=== PATIENT | male | born 1960 | race African-American/Black ===

== ENCOUNTER 2023-05-30 15:29 | Inpatient (IN) | payer BC ==
[~2023-05-30] VITALS: Ht 162.6 cm; Wt 53.3 kg
[2023-05-30] VITALS (10 sets, daily range): BP systolic 132–169; BP diastolic 84–99; PULSE 76–125; TEMP 97.6–98.6
[2023-05-30 15:49] LABS: COLLECTION METHOD CLEAN CATCH
[2023-05-30 15:59] LABS: BASO # 0.1 K/mm3 (0.0-0.2); BASO % 0.7 % (0.0-2.0); EOS # 0.2 K/mm3 (0.0-0.7); EOS % 3.4 % (0.0-4.0); GRAN # 3.5 K/mm3 (1.4-6.5); LYMPH # 2.1 K/mm3 (1.2-3.4); LYMPH % 31.3 % (20.0-51.0); MEAN CELL VOLUME 104 fl (80.0-100.0); MEAN CORPUSCULAR HGB CONC 30 g/dl (33.0-37.0); MEAN PLATELET VOLUME 8.2 fl (7.4-10.4); MONO # 0.9 K/mm3 (0.1-0.6); MONO % 13.2 % (1.7-9.3); PLATELET COUNT 344 K/mm3 (130-400); RED BLOOD COUNT 2.01 M/mm3 (4.20-5.60)
[2023-05-30 16:04] LABS: HEMATOCRIT 20.8 % (42.0-52.0); HEMOGLOBIN 6.3 g/dl (13.5-18.0); MEAN CORPUSCULAR HEMOGLOBIN 31 pg (27-31)
[2023-05-30 16:10] LABS: URINE APPEARANCE Cloudy (CLEAR/HAZY); URINE BLOOD 2+ (NEGATIVE); URINE COLOR Yellow (YELLOW); URINE GLUCOSE Negative (NEGATIVE); URINE KETONE Negative (NEGATIVE); URINE NITRATE Positive (NEGATIVE); URINE UROBILINOGEN 0.2 E.U/dL (0.2-1.0)
[2023-05-30 16:11] LABS: URINE PROTEIN(semi-quant) 2+ (NEGATIVE)
[2023-05-30 16:16] LABS: ALBUMIN 2.8 gm/dL (3.4-4.8); BILIRUBIN,TOTAL 0.3 mg/dL (0.2-1.2); C-REACTIVE PROTEIN 1.91 mg/dL (0.00-0.50); CALCIUM 9.1 mg/dL (8.4-10.2); CREATININE, serum 2.84 mg/dL (0.72-1.25); POTASSIUM 4.7 mmol/L (3.5-4.5); TOTAL PROTEIN 8.3 gm/dL (6.2-8.1)
[2023-05-30 18:43] LABS: RETIC # 0.08 M/mm3 (0.02-0.16); RETIC % 4.1 % (0.5-3.52)
--- NOTE | 2023-05-30 20:05 | NUR ---
Patient admitted to the floor during shift change, bedside report given by Aramis CRISTOBAL, patient reports he doesn't take any meds at home.
--- NOTE | 2023-05-30 21:01 | NUR ---
Patient assessed at this time, admission intake done as well, hospital policies orientated, with spencer to DD draining red-tinged urine, denies further needs, will continue to monitor.
--- NOTE | 2023-05-30 23:39 | NUR ---
Patient first unit of blood given and no transfusion reaction noted, 2nd unit just started, will continue to monitor.
[2023-05-31] VITALS (25 sets, daily range): BP systolic 116–145; BP diastolic 68–94; PULSE 78–95; TEMP 96.2–98.9
--- NOTE | 2023-05-31 03:53 | NUR ---
Patient complained of pain, PS of 6/10, IV morphine given, NPO maintained.
[2023-05-31 03:55] LABS: BASO # 0.1 K/mm3 (0.0-0.2); BASO % 0.7 % (0.0-2.0); EOS # 0.2 K/mm3 (0.0-0.7); EOS % 2.4 % (0.0-4.0); GRAN # 4.4 K/mm3 (1.4-6.5); GRAN % 58.9 % (42.2-75.2); LYMPH % 26.9 % (20.0-51.0); MEAN CORPUSCULAR HGB CONC 32 g/dl (33.0-37.0); MEAN PLATELET VOLUME 8.2 fl (7.4-10.4); MONO # 0.8 K/mm3 (0.1-0.6); MONO % 10.7 % (1.7-9.3); PLATELET COUNT 307 K/mm3 (130-400); REDCELL DISTRIBUTION WIDTH-CV 16.3 % (11.5-14.5)
[2023-05-31 04:02] LABS: HEMATOCRIT 23.9 % (42.0-52.0); HEMOGLOBIN 7.6 g/dl (13.5-18.0); MEAN CELL VOLUME 96 fl (80.0-100.0); MEAN CORPUSCULAR HEMOGLOBIN 30 pg (27-31)
[2023-05-31 04:17] LABS: INR 1.1 (0.8-3.0); PROTHROMBIN TIME 12.1 SECONDS (9.7-12.8)
[2023-05-31 04:20] LABS: CALCIUM 9.3 mg/dL (8.4-10.2); CREATININE, serum 2.51 mg/dL (0.72-1.25); MAGNESIUM 1.6 mg/dL (1.6-2.6); POTASSIUM 5.2 mmol/L (3.5-4.5)
--- NOTE | 2023-05-31 05:41 | NUR ---
Patient complained of pain, PS of 5/10, oxycodone given with sips of water, SCD's on, will continue to monitor.
--- NOTE | 2023-05-31 07:37 | NUR ---
PATIENT ALERT AND ORIENTED X3. PATIENT DENIES PAIN AT THIS TIME BUT SOME TENDERNESS TO HIS FEET. PATIENT WEARING SCD'S AND ON RA.PATIENT LAYING DOWN RESTING AND WAITING ON HIS SURGERY PROGRAMMED FOR TODAY. PATIENT CURRENTLY NPO AND LR RUNNING AT 60ML/HR. PATIENT DENIES FONTAINE, SOB AND DENIES ANY OTHER CONCERN AT THIS TIME. CALL LIGHT IN REACH. BED AT LOWEST POSITION.
--- NOTE | 2023-05-31 13:57 | NUR ---
Street Sweeper Operator met with patient after he came up from his procedure and he stated he is a little groggy. SW asked intake questions but will follow up on discharge planning. Patient just moved to [place] a week ago to live with his brother, Jeff (ph#[phone]). Patient advised Jeff is helping him get set up with a PCP. Patient is unsure if he has DPOA-HC completed. Discharge Plan: [facility]
[2023-06-01] VITALS (12 sets, daily range): BP systolic 126–148; BP diastolic 91–99; PULSE 80–87; TEMP 97.5–98.2
--- NOTE | 2023-06-01 06:07 | NUR ---
pt asking for breakfast, wanting to eat regular food, bowel sounds hypoactive, not passing any gas yet, gave pt some vanilla pudding to try. dsg to abd cdi, IVF infusing per piv @ 60cc/hr, spencer patent/secure, draining orange urine(pt on AZO) with small amt of blood present. on RA since last evening. pain controlled with scheduled tylenol and x1 oxycodone and morphine IV x1.
[2023-06-01 06:35] LABS: BASO % 0.2 % (0.0-2.0); GRAN # 8.3 K/mm3 (1.4-6.5); LYMPH # 1.4 K/mm3 (1.2-3.4); LYMPH % 13.1 % (20.0-51.0); MEAN CELL VOLUME 96 fl (80.0-100.0); MEAN CORPUSCULAR HGB CONC 32 g/dl (33.0-37.0); MEAN PLATELET VOLUME 8.7 fl (7.4-10.4); MONO % 9.4 % (1.7-9.3); PLATELET COUNT 332 K/mm3 (130-400); RED BLOOD COUNT 2.32 M/mm3 (4.20-5.60); REDCELL DISTRIBUTION WIDTH-CV 16.1 % (11.5-14.5)
[2023-06-01 06:41] LABS: HEMATOCRIT 22.2 % (42.0-52.0); MEAN CORPUSCULAR HEMOGLOBIN 30 pg (27-31)
[2023-06-01 06:51] LABS: CALCIUM 8.6 mg/dL (8.4-10.2); CREATININE, serum 2.63 mg/dL (0.72-1.25)
[2023-06-01 07:07] LABS: POTASSIUM 5.8 mmol/L (3.5-4.5)
--- NOTE | 2023-06-01 08:00 | NUR ---
MD AWARE OF PATIENTS HGB OF 7.0 AND POTASSIUM OF 5.8.
[2023-06-01 18:57] LABS: CALCIUM 8.9 mg/dL (8.4-10.2); CREATININE, serum 2.57 mg/dL (0.72-1.25)
--- NOTE | 2023-06-01 20:30 | NUR ---
HÉCTOR WAS UP IN BED AWAKE UPON SHIFT ASSESSMENT. HE IS FATIGUED AND IS AXO X 4. VS ARE CURRENTLY WNL AND TELE IS NS. MATOS IS DRAINING BLOOD TINGED URINE AND MATOS INSERTION SITE NOTED TO HAVE SLIGHT REDNESS. TRANSVERSE SURGICAL WOUND DRESSING-CDI Hgb 7.0 AND PER NURSING NOTES, MD IS AWARE AND NO NEW ORDERS UNTIL RESULTING H&H IN MORNING. HE DENIES ANY PAIN OR NEEDS AT THIS TIME, HOWEVER, GRIMACING AND BRACING NOTED. PATIENT REFUSED OFFERED PRN PAIN MEDS. CALL LIGHT WITHIN REACH.
[2023-06-02] VITALS (12 sets, daily range): BP systolic 103–146; BP diastolic 69–90; PULSE 85–89; TEMP 98–98.5
--- NOTE | 2023-06-02 | NUR ---
SMALL AMOUNT OF BLOOD-TINGED URINE NOTES ON TYRA UNDER PATIENT'S MATOS. MARKED WITH SHARPY AND WILL REASSESS AND CHANGE TYRA.
--- NOTE | 2023-06-02 07:23 | NUR ---
During shift report, edema of rt arm was noted. IV infiltrated NS. Fluid was stopped, line was DC'd, limb was elevated and warm blanket was applied. Johnny voiced interest in breakfast and an increased appetite-tray ordered with assisstance. VSS and Tele in NS. B[place]aux is now draining dark guillermina urine, improved from hematuria. Call light within reach.
[2023-06-02 07:27] LABS: BASO # 0.1 K/mm3 (0.0-0.2); BASO % 0.5 % (0.0-2.0); EOS # 0.2 K/mm3 (0.0-0.7); EOS % 2.2 % (0.0-4.0); GRAN # 7.3 K/mm3 (1.4-6.5); GRAN % 75.4 % (42.2-75.2); LYMPH # 1.5 K/mm3 (1.2-3.4); LYMPH % 15.3 % (20.0-51.0); MEAN CELL VOLUME 97 fl (80.0-100.0); MEAN CORPUSCULAR HGB CONC 32 g/dl (33.0-37.0); MEAN PLATELET VOLUME 8.7 fl (7.4-10.4); MONO # 0.6 K/mm3 (0.1-0.6); MONO % 6.2 % (1.7-9.3); PLATELET COUNT 319 K/mm3 (130-400); RED BLOOD COUNT 2.35 M/mm3 (4.20-5.60); REDCELL DISTRIBUTION WIDTH-CV 15.4 % (11.5-14.5)
[2023-06-02 07:28] LABS: HEMATOCRIT 22.7 % (42.0-52.0); HEMOGLOBIN 7.3 g/dl (13.5-18.0); MEAN CORPUSCULAR HEMOGLOBIN 31 pg (27-31)
[2023-06-02 07:43] LABS: CALCIUM 8.6 mg/dL (8.4-10.2); CREATININE, serum 2.41 mg/dL (0.72-1.25); MAGNESIUM 1.5 mg/dL (1.6-2.6); PHOSPHOROUS 4.4 mg/dL (2.3-4.7); POTASSIUM 5.4 mmol/L (3.5-4.5)
--- NOTE | 2023-06-02 08:32 | NUR ---
PT RESTING IN BED, EATING BREAKFAST. DENIES NEEDS. MATOS TO DD WITH PINKISH DRAINAGE IN BAG. ABDOMINAL INCISION COVERED WITH GAUZE AND TAPE DRESSING.
--- NOTE | 2023-06-02 09:56 | NUR ---
sanitation worker hosing machinery completed a DPOA-HC with pt with JOSE Chapin as a witness. Pt listed his brother, Jeff. Pt was provided originals and copies. Copy in chart. PT/OT pending Discharge Plan: [facility]
[2023-06-02] MEDS ORDERED: ADVIL200 MG PO (10:20)
[2023-06-02] MEDS ORDERED: STOOL SOFTENER100 M2 PO (10:21)
[2023-06-02] MEDS ORDERED: CEPHALEXIN500 M1 PO (10:52)
[2023-06-02] MEDS ORDERED: PERCOCET 325 MG1 TA2 PO (10:52)
--- NOTE | 2023-06-02 20:16 | NUR ---
Patient assessed around 1949. Denies having pain and discomfort. Patient refused all medications tonight, which included Azo and Sodium Bicarb. Peripheral INT to left forearm and left wrist area. Dressing to abdomen CDI. Indwelling spencer catheter patent, draining yellow urine. No edema. Voices no questions, needs, or concerns at this time. In bed with call light within reach. High fall risk precautions in place. Bed alarm on.
[2023-06-03] VITALS (13 sets, daily range): BP systolic 102–130; BP diastolic 35–84; PULSE 77–100; TEMP 97.8–98.2
--- NOTE | 2023-06-03 05:40 | NUR ---
Patient has declined scheduled APAP throughout this shift. Has denied having pain and discomfort. Voices no questions, needs, or concerns at this time. In bed with call light within reach. High fall risk precautions in place. Bed alarm on.
[2023-06-03 07:03] LABS: BASO % 0.4 % (0.0-2.0); EOS # 0.2 K/mm3 (0.0-0.7); EOS % 2.4 % (0.0-4.0); GRAN % 75.4 % (42.2-75.2); LYMPH # 1.4 K/mm3 (1.2-3.4); LYMPH % 15.4 % (20.0-51.0); MEAN CELL VOLUME 96 fl (80.0-100.0); MEAN CORPUSCULAR HGB CONC 31 g/dl (33.0-37.0); MEAN PLATELET VOLUME 8.7 fl (7.4-10.4); MONO # 0.6 K/mm3 (0.1-0.6); MONO % 5.9 % (1.7-9.3); PLATELET COUNT 332 K/mm3 (130-400); RED BLOOD COUNT 2.34 M/mm3 (4.20-5.60); REDCELL DISTRIBUTION WIDTH-CV 14.8 % (11.5-14.5)
[2023-06-03 07:07] LABS: HEMATOCRIT 22.4 % (42.0-52.0); MEAN CORPUSCULAR HEMOGLOBIN 30 pg (27-31)
[2023-06-03 07:19] LABS: CALCIUM 8.8 mg/dL (8.4-10.2); CREATININE, serum 2.44 mg/dL (0.72-1.25); MAGNESIUM 1.7 mg/dL (1.6-2.6); POTASSIUM 5.3 mmol/L (3.5-4.5)
--- NOTE | 2023-06-03 08:46 | NUR ---
PT RESTING IN BED EATING BREAKFAST. HGB TRENDING DOWN. 1 UNIT BLOOD ORDERED. ECHO ORDERED. PT REFUSING ALL MEDS AT THIS TIME. ABDOMINAL DRESSING CDI.
[2023-06-03] MEDS ORDERED: LOKELMA10 GM PO (10:50)
[2023-06-03] MEDS ORDERED: SODIUM BICARBO650 MG PO (10:51)
--- NOTE | 2023-06-03 12:11 | NUR ---
red cross worker was informed by Clerk Geurra patient needs a PCP. SW spoke with patient's brother, Jeff who advised he was still looking as his brother just moved in with him. SW informed him of the clinics accepting new patients. Patient was alerted by CHRISTIAN Davies that Jeff would like his brother to see Dr. Cece Puckett at [facility]. SW passed this on to Clerk Guerra to assist in getting patient established. OT says home Discharge Plan: Home with brother
== END 2023-06-03 18:38 | disposition home or self-care (01) | DRG 663 ==
LOC: COL.ER 15:29 → SURG 17:15
PROVIDERS: Family Medicine; Physician Assistant; Urology; ADMIT Internal Medicine
PROC: 30233N1 Transfusion of Nonautologous Red Blood Cells into Peripheral Vein, Percutaneous Approach (ICD-10-PCS; 2023-05-30)
PROC: 0TCB0ZZ Extirpation of Matter from Bladder, Open Approach (ICD-10-PCS; principal; 2023-05-31 09:00)
DX: N13.6 Pyonephrosis (principal); E87.20 Acidosis, unspecified; N21.0 Calculus in bladder; N17.9 Acute kidney failure, unspecified; K59.00 Constipation, unspecified; N13.9 Obstructive and reflux uropathy, unspecified; N26.1 Atrophy of kidney (terminal); D53.9 Nutritional anemia, unspecified; R79.89 Other specified abnormal findings of blood chemistry; B95.4 Other streptococcus as the cause of diseases classified elsewhere; F10.10 Alcohol abuse, uncomplicated; N18.9 Chronic kidney disease, unspecified; E87.5 Hyperkalemia; Z87.891 Personal history of nicotine dependence
CPT/HCPCS: A9270; A9284; J0360; J0612; J0690; J0696; J1100; J1920; J2270; J2405; J2704; J2710; J2795; J3010; J7030; J7120; P9016; Q3014

== ENCOUNTER → 2023-06-15 | Outpatient (CLI) | payer BC, MEDICAID ==
[~2023-06-15] MED LIST: ADVIL200 MG PO; CEPHALEXIN500 M1 PO; Iohexol 300 - 100 ML VIAL IV ONE; LOKELMA10 GM PO; PERCOCET 325 MG1 TA2 PO; SODIUM BICARBO650 MG PO; STOOL SOFTENER100 M2 PO
== END ==
LOC: COL.RAD 09:08
DX: N21.0 Calculus in bladder (principal)
CPT/HCPCS: Q9967

== ENCOUNTER 2023-07-24 17:29 | Emergency (ER) | payer BC, MEDICAID ==
[~2023-07-24] VITALS: Ht 162.6 cm; Wt 66.4 kg
[~2023-07-24 17:29] MED LIST changes: -Iohexol 300 - 100 ML VIAL IV ONE
[2023-07-24 18:23] LABS: COLLECTION METHOD RANDOM VOIDED
[2023-07-24 18:32] LABS: BASO # 0.1 K/mm3 (0.0-0.2); BASO % 1.1 % (0.0-2.0); EOS # 0.2 K/mm3 (0.0-0.7); EOS % 4.3 % (0.0-4.0); GRAN # 2.1 K/mm3 (1.4-6.5); GRAN % 38.7 % (42.2-75.2); LYMPH # 2.3 K/mm3 (1.2-3.4); LYMPH % 42.3 % (20.0-51.0); MEAN CELL VOLUME 99 fl (80.0-100.0); MEAN CORPUSCULAR HGB CONC 32 g/dl (33.0-37.0); MEAN PLATELET VOLUME 9.1 fl (7.4-10.4); MONO # 0.7 K/mm3 (0.1-0.6); MONO % 13.4 % (1.7-9.3); PLATELET COUNT 211 K/mm3 (130-400); RED BLOOD COUNT 2.85 M/mm3 (4.20-5.60); REDCELL DISTRIBUTION WIDTH-CV 15.8 % (11.5-14.5)
[2023-07-24 18:34] LABS: PH 6.5 (5.0-8.5); URINE APPEARANCE CLEAR (CLEAR/HAZY); URINE BLOOD TRACE (NEGATIVE); URINE COLOR YELLOW (YELLOW); URINE GLUCOSE NEGATIVE (NEGATIVE); URINE KETONE NEGATIVE (NEGATIVE); URINE NITRATE NEGATIVE (NEGATIVE); URINE PROTEIN(semi-quant) 1+ (NEGATIVE)
[2023-07-24 18:36] LABS: HEMATOCRIT 28.1 % (42.0-52.0); HEMOGLOBIN 8.9 g/dl (13.5-18.0); MEAN CORPUSCULAR HEMOGLOBIN 31 pg (27-31)
[2023-07-24 18:49] LABS: ALBUMIN 3.4 gm/dL (3.4-4.8); BILIRUBIN,TOTAL 0.3 mg/dL (0.2-1.2); CALCIUM 9.3 mg/dL (8.4-10.2); CREATININE, serum 2.54 mg/dL (0.72-1.25); POTASSIUM 4.6 mmol/L (3.5-4.5); TOTAL PROTEIN 8.7 gm/dL (6.2-8.1)
[2023-07-24 18:59] LABS: TROPONIN-I 0.013 ng/mL (0.00-0.033)
[2023-07-24] MEDS ORDERED: CEPHALEXIN500 M1 PO (20:23)
[2023-07-24 20:29] VITALS: BP 147/111; PULSE 95; TEMP 97.5
== END 2023-07-24 20:32 | disposition home or self-care (01) ==
LOC: COL.ER 17:29
PROVIDERS: Emergency Medicine
DX: N18.9 Chronic kidney disease, unspecified (principal); N39.0 Urinary tract infection, site not specified; R79.89 Other specified abnormal findings of blood chemistry; Z87.891 Personal history of nicotine dependence

== ENCOUNTER 2024-01-18 19:46 | Emergency (ER) | payer MEDICARE, MEDICAID ==
[~2024-01-18] VITALS: Ht 162.6 cm; Wt 58.2 kg
[2024-01-18 19:56] VITALS: BP 164/98; TEMP 98.5
[2024-01-18 21:03] VITALS: PULSE 70
== END 2024-01-18 21:04 | disposition home or self-care (01) ==
LOC: COL.ER 19:46
DX: S01.412A Laceration without foreign body of left cheek and temporomandibular area, initial encounter (principal); F17.210 Nicotine dependence, cigarettes, uncomplicated; V27.49XA Other motorcycle driver injured in collision with fixed or stationary object in traffic accident, initial encounter; Y93.55 Activity, bike riding